=== PATIENT | male | born 1960 | race Caucasian/White ===

== ENCOUNTER 2018-08-27 13:24 | Emergency (ER) | payer OTHER ==
[~2018-08-27] VITALS: Ht 185.4 cm; Wt 92.4 kg
--- NOTE | 2018-08-27 13:59 | NUR ---
ERP AT BS.
[2018-08-27 14:07] VITALS: BP 107/81
[2018-08-27] MEDS ORDERED: qvar INH (14:34)
[2018-08-27 14:43] LABS: BASOPHILS # (AUTO) 0.01 x10^3/uL (0-0.1); BASOPHILS % (AUTO) 0 % (0-1); EOSINOPHILS # (AUTO) 0.09 x10^3/uL (0-0.4); EOSINOPHILS % (AUTO) 3 % (1-7); LYMPHOCYTES # (AUTO) 0.82 x10^3/uL (1-3.4); LYMPHOCYTES % (AUTO) 22 % (22-44); MD NO; MEAN CORPUSCULAR HEMOGLOBIN 31.2 pg (27.5-34.5); MEAN CORPUSCULAR HGB CONC 34.2 g/dL (33.2-36.2); MEAN CORPUSCULAR VOLUME 91.3 fL (81-97); MEAN PLATELET VOLUME 8.1 fL (7.4-10.4); MONOCYTES # (AUTO) 0.58 x10^3/uL (0.2-0.8); MONOCYTES % (AUTO) 16 % (2-9); NEUTROPHILS % (AUTO) 59 % (42-75); PLATELET COUNT 184 x10^3/uL (130-400); RED BLOOD COUNT 4.97 x10^6/uL (4.38-5.82); RED CELL DISTRIBUTION WIDTH 13.2 % (9.4-14.8)
[2018-08-27 14:48] LABS: ALBUMIN 3.7 g/dL (3.4-5.0); ANION GAP 5 mmol/L (5-15); CALCIUM 8.3 mg/dL (8.5-10.1); CHLORIDE 104 mmol/L (98-107); CREATININE 1.04 mg/dL (0.7-1.3)
[2018-08-27 14:52] LABS: TROPONIN I < 0.015 ng/mL (0.000-0.045)
--- NOTE | 2018-08-27 15:19 | NUR ---
REPORTED TO CORINA LIN. PT TO CT AT THIS TIME.
--- NOTE | 2018-08-27 15:23 | NUR ---
RECEIVED REPORT FROM BRAD LIN
--- NOTE | 2018-08-27 15:34 | NUR ---
PT BACK FROM CT SCAN
== END 2018-08-27 16:55 | disposition home or self-care (01) ==
LOC: ED 16:03
DX: R07.89 Other chest pain (principal); J10.1 Influenza due to other identified influenza virus with other respiratory manifestations; M79.10 Myalgia, unspecified site
CPT/HCPCS: 36415; 71260; 80048; 82040; 84484; 85025; 93005; 99284

== ENCOUNTER 2019-04-02 16:29 | Emergency (ER) | payer OTHER ==
[~2019-04-02] VITALS: Ht 185.4 cm; Wt 91.9 kg
[~2019-04-02 16:29] MED LIST: qvar INH
--- NOTE | 2019-04-02 16:58 | NUR ---
PT AMBULATED TO ROOM WITH A STEADY GAIT. PT IN GOWN AT THIS TIME AWAITING MD BAKER.
--- NOTE | 2019-04-02 16:58 | NUR ---
DIRECTOR OF ACCOUNTING: PT TO ROOM FROM LOBBY
[2019-04-02 17:05] LABS: ALBUMIN 3.8 g/dL (3.4-5.0); ANION GAP 6 mmol/L (5-15); CALCIUM 8.5 mg/dL (8.5-10.1); CHLORIDE 109 mmol/L (98-107); CREATININE 0.94 mg/dL (0.7-1.3)
[2019-04-02 17:06] LABS: BASOPHILS # (AUTO) 0.04 x10^3/uL (0-0.1); BASOPHILS % (AUTO) 1 % (0-1); EOSINOPHILS # (AUTO) 0.29 x10^3/uL (0-0.4); EOSINOPHILS % (AUTO) 4 % (1-7); LYMPHOCYTES # (AUTO) 2.04 x10^3/uL (1-3.4); LYMPHOCYTES % (AUTO) 28 % (22-44); MD NO; MEAN CORPUSCULAR HGB CONC 33.5 g/dL (33.2-36.2); MEAN CORPUSCULAR VOLUME 92.5 fL (81-97); MEAN PLATELET VOLUME 7.8 fL (7.4-10.4); MONOCYTES # (AUTO) 0.55 x10^3/uL (0.2-0.8); MONOCYTES % (AUTO) 8 % (2-9); NEUTROPHILS # (AUTO) 4.35 x10^3/uL (1.8-6.8); NEUTROPHILS % (AUTO) 60 % (42-75); PLATELET COUNT 208 x10^3/uL (130-400); RED BLOOD COUNT 4.92 x10^6/uL (4.38-5.82)
[2019-04-02 18:55] VITALS: BP 148/87
[2019-04-02] MEDS ORDERED: APIXABAN 5 MG TABLET PO ONE (19:15)
[2019-04-02] MEDS ORDERED: APIXABAN 5 MG TABLET ONE (19:22)
== END 2019-04-02 20:02 | disposition home or self-care (01) ==
LOC: ED 19:00
DX: I82.431 Acute embolism and thrombosis of right popliteal vein (principal)
CPT/HCPCS: 36415; 80048; 82040; 85025; 99284